=== PATIENT | male | born 1990 | race Caucasian/White ===

== ENCOUNTER → 2017-04-25 | Outpatient (CLI) | payer OTHER ==
[~2017-04-25] VITALS: Ht 175.3 cm; Wt 69.1 kg
[~2017-04-25] MED LIST: CHLORHEXIDINE GLUCONATE 2 % 1 PACK (2 CLOTHS) TOPICAL PRN; INSULIN HUMAN REGULAR 1,000 UNITS/10 ML VIAL SQ PRN; LACTATED RINGER'S 1000 ML IV PRN; LITH600C PO; LURA20TA PO; LURA40 PO; METOPROLOL TARTRATE 25 MG TAB PO PRN; POVIDONE IODINE 5% (ANTISEPSIS KIT) 4 APPLICATIONS EACH NARE PRN; PROPOFOL 200 MG/20 ML AMP IV ONE; REST15CA PO; SODIUM CHLORID 0.9% 500 ML IV PRN
[2017-04-25 15:39] VITALS: TEMP 97.6
--- NOTE | 2017-04-25 15:39 | GIPROC ---
[facility] [address] [facility]. [facility] [place], [address] EGD PROCEDURE REPORT EXAM DATE: 04/25/2017 PATIENT NAME: David Sanz MR #: [id number] BIRTHDATE: 1990 ATTENDING: Ronal Klein MD ORDER #: [id number] ELIGIBILITY CONSULTANT: Donita Manuel and Mario Staples STATUS: outpatient INDICATIONS: The patient is a 26 yr old male here for an EGD due to epigastric abdominal pain, hematemesis, vomiting, and nausea PROCEDURE PERFORMED: EGD w/ biopsy MEDICATIONS: None and Per Anesthesia. TOPICAL ANESTHETIC: none CONSENT: The patient understands the risks and benefits of the procedure and understands that these risks include, but are not limited to: sedation, allergic reaction, infection, perforation and/or bleeding. Alternative means of evaluation and treatment include, among others: physical exam, x-rays, and/or surgical intervention. The patient elects to proceed with this endoscopic procedure. medical equipment was checked for proper function. Hand hygiene and appropriate measures for infection prevention was taken. After the risks, benefits and alternatives of the procedure were thoroughly explained, Informed consent was verified, confirmed and timeout was successfully executed by the treatment team. The patient was anesthetized with topical anesthesia and the Pentax EG-[id number] endoscope was introduced through the mouth and advanced to the third portion of the duodenum. Retroflexion was performed and was normal The gastroscope was then slowly withdrawn and removed. ESOPHAGUS: Irregular and friable GE junctrion was noted at 42 cm. biopsied. STOMACH: The mucosa of the stomach appeared grossly normal. Patient did have trouble retaining air. DUODENUM: The duodenal mucosa appeared normal. Cold forcep biopsies were taken in the 3rd portion. ADVERSE EVENTS: There were no complications. IMPRESSIONS: 1. Irregular and friable GE junctrion was noted at 42 cm. biopsied 2. The mucosa of the stomach appeared normal (see above) 3. Normal duodenal mucosa 4. Retroflexion was performed and was normal RECOMMENDATIONS: 1. Await biopsy results. Biopsy results will not be ready for 7-10 days. If you don't hear from us in two weeks, call our office for biopsy results. 2. Follow-up: GI clinic 1 month(s) PATIENT CONDITION: stable DISPOSITION: Home REPEAT EXAM: NONE Ronal Klein MD eSigned: Ronal Klein MD 04/25/2017 3:38 PM cc: PATIENT NAME: YvonDavid dubon MR#: [id number]
[2017-04-25 16:16] VITALS: BP 117/69; PULSE 67; RESP 16; O2SAT 100
== END ==
LOC: HSDC 12:46
PROVIDERS: ATTEND Internal Medicine Gastroenterology
DX: K20.9 Esophagitis, unspecified (principal); R10.13 Epigastric pain; R11.2 Nausea with vomiting, unspecified
CPT/HCPCS: 88305